=== PATIENT | female | born 1985 | race Caucasian/White ===

== ENCOUNTER 2017-05-31 15:50 | Emergency (ER) | END 2017-05-31 16:21 | disposition home or self-care (01) | DX: J02.9 Acute pharyngitis, unspecified (principal) ==

== ENCOUNTER 2018-01-14 13:36 | Emergency (ER) | END 2018-01-14 14:07 | disposition home or self-care (01) ==

== ENCOUNTER 2018-01-19 08:53 | Emergency (ER) | END 2018-01-19 11:27 | disposition home or self-care (01) ==

== ENCOUNTER 2018-02-21 17:06 | Emergency (ER) | END 2018-02-21 19:55 | disposition left against medical advice (07) ==